=== PATIENT | female | born 1995 | race Caucasian/White ===

== ENCOUNTER → 2016-12-24 | Outpatient (CLI) | payer MEDICAID, OTHER ==
[~2016-12-24] MED LIST: PNV1TABL81 PO
--- NOTE | 2016-12-24 13:34 | Diagnostic Imaging Report ---
INDICATION: survey. TECHNIQUE: Multiple real-time grayscale images were obtained over the gravid uterus. COMPARISON: None. FINDINGS: There are no prior studies available for comparison. There is a single live fetus in variable presentation. heart motion was noted, and a rate of 127 bpm was recorded. There are no abnormalities identified; however, the stomach and four-chamber heart view were not well imaged. I would recommend that a short-term (four to six-week) followup exam be performed for further evaluation of the heart and stomach. The amniotic fluid volume is within normal limits. The placenta is anterior, and there is no previa. The growth parameters are fairly uniform. The cervix is identified and measures 4 cm in length. IMPRESSION: 1. There is a single live fetus approximately 20 weeks 5 days gestation +/- 1.5 weeks. The EDC is 05/08/2017. 2. There are no abnormalities identified, but the four-chamber heart view and the stomach were not optimally visualized. Recommendations as above. 3. The growth parameters are fairly uniform. Biometrical measurements are as follows: Biparietal 4.8 cm, age 20 weeks 4 days. Head circumference 18.07 cm, age 20 weeks 4 days. Abdominal circumference 15.9 cm, age 21 weeks 1 days. Femur length 3.37 cm, age 20 weeks 4 days. Sonographic estimate age: 20 weeks 5 days. Sonographic estimated date of delivery: . Estimated Weight: 376 gm (+/- 55 gm). LMP percentile: 56%. heart rate: 127 beats per minute. number: 1 of 1. Dictated by: Dictated on workstation # [id number]
== END ==
LOC: RAD 09:52
PROVIDERS: ATTEND Obstetrics & Gynecology
DX: Z36 Encounter for antenatal screening of mother (principal)
CPT/HCPCS: 76805

== ENCOUNTER → 2017-01-09 | Outpatient (CLI) | payer MEDICAID | LOC: LAB 09:04 | PROVIDERS: ATTEND Obstetrics & Gynecology | DX: O99.810 Abnormal glucose complicating pregnancy (principal); Z3A.00 Weeks of gestation of pregnancy not specified | CPT/HCPCS: 36415; 82951; 82952; 82962 ==

== ENCOUNTER → 2017-01-28 | Outpatient (CLI) | payer MEDICAID ==
--- NOTE | 2017-01-28 18:51 | Diagnostic Imaging Report ---
INDICATION: Follow-up stomach and heart evaluation. TECHNIQUE: Multiple real-time grayscale images were obtained over the gravid uterus. COMPARISON: 12/24/2016. FINDINGS: The heart rate is 140 beats per minutes. The placenta is anterior and extends to the lower uterine segment. It is at 1.9 cm from the internal os. The stomach appears unremarkable. The four-chamber view is not well seen due to position. IMPRESSION: 1. The placenta appears to extend to the lower uterine segment at about 1.9 cm from the internal os. 2. The four-chamber view of the heart is still not well seen. Dictated by: Dictated on workstation # [id number]
== END ==
LOC: RAD 09:34
PROVIDERS: ATTEND Obstetrics & Gynecology
DX: Z36.2 Encounter for other antenatal screening follow-up (principal); Z3A.00 Weeks of gestation of pregnancy not specified
CPT/HCPCS: 76816

== ENCOUNTER 2017-02-26 12:40 | Outpatient (CLI) | payer MEDICAID ==
[~2017-02-26] VITALS: Ht 161.3 cm; Wt 98.2 kg
[2017-02-26 12:58] VITALS: BP 120/60
[2017-02-26 13:25] LABS: BILIRUBIN,URINE NEGATIVE (NEGATIVE); KETONES,URINE NEGATIVE (NEGATIVE); LEUKOCYTE ESTERASE ,URINE 1+ (NEGATIVE); NITRITE,URINE NEGATIVE (NEGATIVE); PH,URINE 6.5 (5-9); PROTEIN,URINE 1+ (NEGATIVE); UROBILINOGEN,URINE 1 MG/DL (NORMAL)
[2017-02-26] MEDS ORDERED: INFLUENZA TRIvalent 2017-2018 0.5 ML/45 MCG SYR IM ONE (13:45)
[2017-02-26] MEDS ORDERED: CEPHALEXIN 250 MG (KEFLEX) CAP PO NR (14:00)
[2017-02-26] MEDS ORDERED: PNV1TABL81 PO (14:19)
--- NOTE | 2017-03-01 12:11 | Physician Query-Final Dx ---
JAVON SNYDER 03/01/17 1211: Clinic Account Progress/Dx Physician Query: Please give diagnosis Date of Service Feb 26, 2017 at 12:40 MARGARITA BYRD DO 03/02/17 0740: Clinic Account Progress/Dx DIAGNOSIS: Diagnosis pelvic pain UTI third trimester JAVON SNYDER Mar 01, 2017 12:11 MARGARITA BYRD DO Mar 02, 2017 07:40
== END 2017-02-26 14:25 | disposition home or self-care (01) ==
LOC: WSo 12:40 → LDRP 12:40 → WSo 14:25
PROVIDERS: ATTEND Obstetrics & Gynecology
DX: O23.43 Unspecified infection of urinary tract in pregnancy, third trimester (principal); O99.89 Other specified diseases and conditions complicating pregnancy, childbirth and the puerperium; R10.2 Pelvic and perineal pain; Z3A.29 29 weeks gestation of pregnancy
CPT/HCPCS: 81000; 87088; 99213

== ENCOUNTER 2017-03-28 10:18 | Observation (INO) | payer MEDICAID ==
[~2017-03-28] VITALS: Ht 162.6 cm; Wt 85.7 kg
[2017-03-28] VITALS (7 sets, daily range): BP systolic 110–139; BP diastolic 56–68
[2017-03-28] MEDS ORDERED: FERR-84 PO (10:34)
[2017-03-28] MEDS ORDERED: RT-ALBUINH IH (10:36)
[2017-03-28] MEDS ORDERED: ACET-2267 PO (10:37)
[2017-03-28] MEDS: D5 LR IV SOLUTION 1,000 ML IV SCH ×2 (11:05→19:15)
[2017-03-28 11:22] LABS: BILIRUBIN,URINE NEGATIVE (NEGATIVE); KETONES,URINE NEGATIVE (NEGATIVE); LEUKOCYTE ESTERASE ,URINE NEGATIVE (NEGATIVE); NITRITE,URINE NEGATIVE (NEGATIVE); PH,URINE 7 (5-9); PROTEIN,URINE 1+ (NEGATIVE); UROBILINOGEN,URINE NORMAL (NORMAL)
[2017-03-28 11:26] LABS: BASOPHILS % (AUTO) 0 % (0-10); EOSINOPHILS % (AUTO) 0 % (0-10); LYMPHOCYTES # (AUTO) 0.5 X 10^3 (1.0-4.0); LYMPHOCYTES % (AUTO) 6 % (12-44); MEAN CORPUSCULAR HEMOGLOBIN 34 PG (25-34); MEAN CORPUSCULAR HGB CONC 34 G/DL (32-36); MEAN CORPUSCULAR VOLUME 100 FL (80-99); MEAN PLATELET VOLUME 11.8 FL (7.4-10.4); MONOCYTES # (AUTO) 0.7 X 10^3 (0.0-1.0); MONOCYTES % (AUTO) 9 % (0-12); NEUTROPHILS # (AUTO) 6.4 X 10^3 (1.8-7.8); NEUTROPHILS % (AUTO) 84 % (42-75); PLATELET COUNT 107 10^3/uL (130-400); RED BLOOD COUNT 3.08 10^6/uL (4.35-5.85); RED CELL DISTRIBUTION WIDTH 13.3 % (10.0-14.5); WHITE BLOOD COUNT 7.7 10^3/uL (4.3-11.0)
[2017-03-28 11:45] LABS: ALANINE AMINOTRANSFERASE 38 U/L (0-55); ALBUMIN 3.1 GM/DL (3.2-4.5); ANION GAP 9 MMOL/L (5-14); ASPARTATE AMINO TRANSFERASE 76 U/L (5-34); BILIRUBIN,TOTAL 0.4 MG/DL (0.1-1.0); BLOOD UREA NITROGEN 2 MG/DL (7-18); BUN/CREATININE RATIO 3; CALCIUM 8.8 MG/DL (8.5-10.1); CARBON DIOXIDE 23 MMOL/L (21-32); CHLORIDE 106 MMOL/L (98-107); CREATININE SERUM 0.66 MG/DL (0.60-1.30); GFR ESTIMATED > 60; GLUCOSE 91 MG/DL (70-105); POTASSIUM 3.1 MMOL/L (3.6-5.0); SODIUM 138 MMOL/L (135-145); TOTAL PROTEIN 5.8 GM/DL (6.4-8.2)
[2017-03-28 11:57] LABS: BAND NEUTROPHILS 16 %; EOSINOPHILS % (MANUAL) 1 %; LYMPHOCYTES % (MANUAL) 6 %; NEUTROPHILS % (MANUAL) 69 %; REACTIVE LYMPHOCYTES 2 %
[2017-03-28] MEDS ORDERED: RT-ALBUTEROL HFA (VENTOLIN) PER PUFF IH PRN (12:15)
[2017-03-28] MEDS ORDERED: INFLUENZA TRIvalent 2017-2018 0.5 ML/45 MCG SYR IM ONE (13:15)
[2017-03-28] MEDS: OSELTAMIVIR 75 MG (TAMIFLU) BOX OF 10 PO SCH ×2 (13:22→21:58)
[2017-03-28] MEDS: ACETAMINOPHEN 500 MG TAB (TYLENOL) PO PRN ×2 (13:26→19:49)
[2017-03-28] MEDS: CHLORASEPTIC LOZENGE MM PRN ×3 (13:33→21:58)
[2017-03-28] MEDS: RT-ALBUTEROL SULF 2.5 MG/3 ML PRE-MIX VIAL INH PRN ×3 (13:38→21:56)
[2017-03-28] MEDS: guaiFENesin/DM (ROBITUSSIN DM) 10 ML UDC PO PRN ×2 (15:36→19:48)
--- OUTSIDE RECORDS SUMMARY | 2017-03-28 22:48 | XMS REPORT | Continuity of Care Document ---
Author Author [facility] Address Unknown Phone Unavailable Allergies Active Description Code Type Severity Reaction Onset Reported/Identified Relationship to Patient Clinical Status Yes clindamycin Drug Allergy N/A N/A 01/08/2014 Medications There is no data. Problems Date Dx Coded Attending Type Code Diagnosis Diagnosed By 01/08/2014 MELISSA HASSAN APRN 278.01 MORBID OBESITY 01/08/2014 MELISSA HASSAN APRN 626.0 ABSENCE OF MENSTRUATION 01/08/2014 MELISSA HASSAN APRN 278.01 MORBID OBESITY 01/08/2014 MELISSA HASSAN APRN 626.0 ABSENCE OF MENSTRUATION 01/15/2014 MELISSA HASSAN APRN 780.4 DIZZINESS AND GIDDINESS Procedures Code [place] [address] TEST, URINE (IN- HOUSE) 01/08/2014 07621 ROUTINE VENIPUNCTURE 01/15/2014 10994 TESTOSTERONE TOTAL-WOMEN & CHILDREN 01/15/2014 70459 CBC 01/15/2014 88290 CMP 01/15/2014 73182 LIPID PANEL 01/15/2014 [id number] GFR CALC (RESULT ONLY) 01/15/2014 59642 PROLACTIN 01/15/2014 21204 TSH 01/15/2014 81269 INSULIN LEVEL 01/16/2014 Results There is no data. Encounters ACCT No. Visit Date/Time Discharge Status Pt. Type Provider Facility Loc./Unit Complaint [id number] 01/15/2014 11:23:00 01/15/2014 23:59:59 CLS Outpatient MELISSA HASSAN APRN [id number] 01/08/2014 14:05:00 01/08/2014 23:59:59 CLS Outpatient MELISSA HASSAN APRN
[2017-03-29] MEDS: ACETAMINOPHEN 500 MG TAB (TYLENOL) PO PRN ×2 (01:44→07:45)
[2017-03-29] MEDS: guaiFENesin/DM (ROBITUSSIN DM) 10 ML UDC PO PRN ×2 (01:44→07:46)
[2017-03-29] MEDS: RT-ALBUTEROL SULF 2.5 MG/3 ML PRE-MIX VIAL INH PRN ×2 (01:58→08:51)
[2017-03-29] MEDS: D5 LR IV SOLUTION 1,000 ML IV SCH (03:40)
[2017-03-29 04:00] VITALS: BP 113/57
[2017-03-29] MEDS: CHLORASEPTIC LOZENGE MM PRN (07:39)
[2017-03-29] MEDS ORDERED: OSLT75C PO (08:50)
--- NOTE | 2017-03-29 08:51 | Discharge Inst-Women's Service ---
Discharge Inst-Women's Serv Depart Medication/Instructions New, Converted or Re-Newed RX: RX on Chart Consults/Follow Up Additional Follow Up: Yes Activity Activity: Activity as Tolerated Driving Instructions: You May Drive NO SMOKING: NO SMOKING Nothing Inside Vagina: No Douching Diet Discharge Diet: No Restrictions Symptoms to Report to : Bleeding Excessive, Pain Increased, Fever Over 101 Degrees F, Vaginal Bleeding Increase, Questions/Concerns For Any Problems or Questions: Contact Your Physician GERARD HENSLEY DO Mar 29, 2017 08:51
--- NOTE | 2017-03-29 09:33 | History & Physical-OB ---
OB - Chief Complaint & HPI Date/Time Date of Admission: Date of Admission: Mar 28, 2017 at 10:33 pm Time Seen by Provider: 08:10 Chief Complaint/History OB-Reason for Admission/Chief: Medical Complication Hx : 1 Hx Para: 0 Expected Date of Delivery: May 09, 2017 Gestational Age in Weeks: 34 Gestational Age in Days: 1 Other reason for admission: This 21-year-old was admitted yesterday morning for a presentation of cough, fever, and nausea with vomiting. The patient reports that she had held anything down for 3 days. Influenza testing was positive for influenza A. Patient was started on Tamiflu yesterday, limited dosing of dextromethorphan was given to the patient for control of her cough, and she reports been afebrile since last night. This morning upon evaluation the patient reports feeling much better still has an occasional cough. She would like a breathing treatment this morning which is pending. She had 2 breathing treatments yesterday and reports significant improvement in her cough and breathing after the treatments. The patient denies any concerns for labor, she reports rare contractions however no regular contractions or picked up on NST yesterday or throughout the evening. Admission Nurse Assessment Rev: Yes History of Labs o neg Antibody neg RI RPR NR HIV NR HBsAg NR GC neg GBS unknown Allergies and Home Medications Allergies Coded Allergies: clindamycin (Unverified Allergy, 03/25/12) Home Medications Acetaminophen 500 Mg Tablet, 500 MG PO, (Reported) Albuterol Sulfate 1 Puff Puff, 2 PUFF IH Q4H, (Reported) 1 PUFF = 90 MCG Ferrous Sulfate 325 Mg Tablet, 325 MG PO DAILY, (Reported) Oseltamivir Phosphate 75 Mg Cap, 0 EACH PO BID for 4 Days, #9 Prescribed by: GERARD HENSLEY on 03/29/17 0850 Pnv No.122/Iron/Folic Acid 1 Each Tablet, 1 EACH PO DAILY, (Reported) OB - History Hx of Present Care: Yes Ultrasounds: Normal mid trimester US Obstetrical Complications: Other (Per Dr. Shin records abnormal 1 hr GTT of 160s with no follow up 3 hr GTT done. Patient has been testing BS levels but I have no documentation of control) Medical Complications: Other (Asthma) Obstetrical History Hx : 1 Hx Para: 0 Delivery History Hx Blood Disorders: No Patient Past Medical History Borderline personality disorder, Asthma, Bipolar, ADHD Social History/Family History Recent Infectious Disease Expo: No OB - Admission Exam Physical Exam Vitals: Vital Signs 03/29/17 03/29/17 04:00 09:00 Temp 98.9 Pulse 105 Resp 20 B/P (MAP) 113/57 (75) Pulse Ox 96 O2 Delivery Room Air HEENT: NCAT Heart: Rhythm Normal Lungs: Wheezes (expiratory wheezes which improve after breathing treatment) Abdomen: Gravid Extremities: Normal Reflexes: Normal Heart Rate: 140's Accelerations: Accelerations Present Decelerations: No Decelerations Short Term Variability: Present Senior Living Variability: Average (6-25) Contractions on Admission: >10 Minutes Apart Intensity: Mild Labs Laboratory Tests Test 03/28/17 10:20 03/28/17 11:19 Range/Units Urine Color YELLOW Urine Clarity CLEAR Urine pH 7 5-9 Urine Specific [place] 1.005 L 1.016-1.022 Urine Protein 1+ H NEGATIVE Urine Glucose (UA) NEGATIVE NEGATIVE Urine Ketones NEGATIVE NEGATIVE Urine Nitrite NEGATIVE NEGATIVE Urine Bilirubin NEGATIVE NEGATIVE Urine Urobilinogen NORMAL NORMAL MG/DL Urine Leukocyte Esterase NEGATIVE NEGATIVE Urine RBC (Auto) 1+ H NEGATIVE Urine RBC NONE /HPF Urine WBC NONE /HPF Urine Crystals NONE /LPF Urine Bacteria TRACE /HPF Urine Casts NONE /LPF Urine Mucus NEGATIVE /LPF Urine Culture Indicated NO White Blood Count 7.7 4.3-11.0 10^3/uL Red Blood Count 3.08 L 4.35-5.85 10^6/uL Hemoglobin 10.4 L 11.5-16.0 G/DL Hematocrit 31 L 35-52 % Mean Corpuscular Volume 100 H 80-99 FL Mean Corpuscular Hemoglobin 34 25-34 PG Mean Corpuscular Hemoglobin Concent 34 32-36 G/DL Red Cell Distribution Width 13.3 10.0-14.5 % Platelet Count 107 L 130-400 10^3/uL Mean Platelet Volume 11.8 H 7.4-10.4 FL Neutrophils (%) (Auto) 84 H 42-75 % Lymphocytes (%) (Auto) 6 L 12-44 % Monocytes (%) (Auto) 9 0-12 % Eosinophils (%) (Auto) 0 0-10 % Basophils (%) (Auto) 0 0-10 % Neutrophils # (Auto) 6.4 1.8-7.8 X 10^3 Lymphocytes # (Auto) 0.5 L 1.0-4.0 X 10^3 Monocytes # (Auto) 0.7 0.0-1.0 X 10^3 Eosinophils # (Auto) 0.0 0.0-0.3 10^3/uL Basophils # (Auto) 0.0 0.0-0.1 10^3/uL Neutrophils % (Manual) 69 % Lymphocytes % (Manual) 6 % Monocytes % (Manual) 6 % Eosinophils % (Manual) 1 % Band Neutrophils 16 % Reactive Lymphocytes 2 % Blood Morphology Comment NORMAL Sodium Level 138 135-145 MMOL/L Potassium Level 3.1 L 3.6-5.0 MMOL/L Chloride Level 106 98-107 MMOL/L Carbon Dioxide Level 23 21-32 MMOL/L Anion Gap 9 5-14 MMOL/L Blood Urea Nitrogen 2 L 7-18 MG/DL Creatinine 0.66 0.60-1.30 MG/DL Estimat Glomerular Filtration Rate > 60 BUN/Creatinine Ratio 3 Glucose Level 91 70-105 MG/DL Calcium Level 8.8 8.5-10.1 MG/DL Total Bilirubin 0.4 0.1-1.0 MG/DL Aspartate Amino Transf (AST/SGOT) 76 H 5-34 U/L Alanine Aminotransferase (ALT/SGPT) 38 0-55 U/L Alkaline Phosphatase 106 40-136 U/L Total Protein 5.8 L 6.4-8.2 GM/DL Albumin 3.1 L 3.2-4.5 GM/DL OB - Assessment/Plan/Diagnosis Plan Other Plan If patient tolerates regular diet for breakfast this morning, and NST is reactive I will consider discharge today around noon pending no further fevers or breathing difficulties. The patient is to continue a 5 day course of Tamiflu 75 mg twice a day. Follow-up is with Dr. Guerrero on . Patient told to continue respiratory precautions when in public including visit to Dr. Guerrero's office. Patient's significant other was told to seek medical attention as he has similar symptoms. Discharge Diagnosis Diagnosis: 21-year-old at 34 weeks and 1 day gestation Influenza A Intractable nausea and vomiting- improved GERARD HENSLEY DO Mar 29, 2017 9:33 am
[2017-03-29 10:00] VITALS: BP 110/51
[2017-03-29 11:20] VITALS: BP 110/51
== END 2017-03-29 08:52 | disposition home or self-care (01) ==
LOC: WSo 10:18 → LDRP 10:18 → WSo 22:33 → 4TH 23:30
PROVIDERS: ADMIT Obstetrics & Gynecology; ATTEND Obstetrics & Gynecology
DX: J10.2 Influenza due to other identified influenza virus with gastrointestinal manifestations (principal); Z3A.34 34 weeks gestation of pregnancy; O99.53 Diseases of the respiratory system complicating the puerperium; J45.909 Unspecified asthma, uncomplicated
CPT/HCPCS: 36415; 80053; 81000; 85007; 85027; 87088; 87804; 94640; 94760; 96360; 96361; 99211; G0378

== ENCOUNTER 2017-05-10 05:55 | Inpatient (IN) | payer MEDICAID ==
[2017-05-10] VITALS (16 sets, daily range): BP systolic 116–146; BP diastolic 58–89
[~2017-05-10] VITALS: Ht 162.6 cm; Wt 101.3 kg
[2017-05-10] MEDS: MISOPROSTOL 100 MCG (CYTOTEC) TAB PO SCH ×4 (01:15→21:15)
[~2017-05-10 05:55] MED LIST changes: +ACET-2267 PO; +FERR-84 PO; +OSLT75C PO; +RT-ALBUINH IH; +[UNRECOGNIZED DRUG - CODE] PO
--- OUTSIDE RECORDS SUMMARY | 2017-05-10 05:58 | XMS REPORT | Continuity of Care Document ---
Author Author [facility] Address Unknown Phone Unavailable Allergies Active Description [...] Procedures Code Description [place] [address] TEST, URINE (IN- HOUSE) 01/08/2014 07097 ROUTINE VENIPUNCTURE 01/15/2014 50740 TESTOSTERONE TOTAL-WOMEN & CHILDREN 01/15/2014 26281 CBC 01/15/2014 57131 CMP 01/15/2014 25322 LIPID PANEL 01/15/2014 [id number] GFR CALC (RESULT ONLY) 01/15/2014 21710 PROLACTIN 01/15/2014 55061 TSH 01/15/2014 09202 INSULIN LEVEL 01/16/2014 Results There is no data. Encounters ACCT No. Visit Date/Time Discharge Status Pt. Type Provider Facility Loc./Unit Complaint [id number] 01/15/2014 11:23:00 01/15/2014 23:59:59 CLS Outpatient MELISSA HASSAN APRN [id number] 01/08/2014 14:05:00 01/08/2014 23:59:59 CLS Outpatient MELISSA HASSAN APRN
[2017-05-10] MEDS ORDERED: LIDOCAINE/EPI 0.5%-1:200,000 (XYLOCAINE) 50ML VIAL INJ PRN (06:30)
[2017-05-10] MEDS ORDERED: MINERAL OIL CONCENTRATE 99.9% 15 ML UDC TOP PRN (06:30)
[2017-05-10] MEDS: D5 LR IV SOLUTION 1,000 ML IV SCH ×2 (09:15→16:59)
[2017-05-10] MEDS ORDERED: MISOPROSTOL 100 MCG (CYTOTEC) TAB PO ONE (09:15)
[2017-05-10] MEDS ORDERED: TERBUTALINE INJ 1 MG/ML (BRETHINE) AMP SC PRN (09:15)
[2017-05-10 09:30] LABS: BASOPHILS % (AUTO) 0 % (0-10); EOSINOPHILS # (AUTO) 0.1 10^3/uL (0.0-0.3); EOSINOPHILS % (AUTO) 1 % (0-10); HEMATOCRIT 34 % (35-52); HEMOGLOBIN 11.8 G/DL (11.5-16.0); LYMPHOCYTES # (AUTO) 1.9 X 10^3 (1.0-4.0); LYMPHOCYTES % (AUTO) 18 % (12-44); MEAN CORPUSCULAR HEMOGLOBIN 34 PG (25-34); MEAN CORPUSCULAR HGB CONC 35 G/DL (32-36); MEAN CORPUSCULAR VOLUME 98 FL (80-99); MEAN PLATELET VOLUME 12.2 FL (7.4-10.4); MONOCYTES # (AUTO) 0.7 X 10^3 (0.0-1.0); MONOCYTES % (AUTO) 7 % (0-12); NEUTROPHILS # (AUTO) 7.9 X 10^3 (1.8-7.8); NEUTROPHILS % (AUTO) 74 % (42-75); PLATELET COUNT 153 10^3/uL (130-400); WHITE BLOOD COUNT 10.6 10^3/uL (4.3-11.0)
[2017-05-10 10:32] LABS: BILIRUBIN,URINE NEGATIVE (NEGATIVE); CLARITY,URINE CLEAR; COLOR,URINE YELLOW; GLUCOSE, URINE (UA) NEGATIVE (NEGATIVE); KETONES,URINE NEGATIVE (NEGATIVE); LEUKOCYTE ESTERASE ,URINE NEGATIVE (NEGATIVE); NITRITE,URINE NEGATIVE (NEGATIVE); PH,URINE 7 (5-9); PROTEIN,URINE NEGATIVE (NEGATIVE); UROBILINOGEN,URINE NORMAL (NORMAL)
[2017-05-10 10:42] LABS: AMORPHOUS SEDIMENT,UR RARE AMOR URATES /LPF; BACTERIA,URINE TRACE /HPF; WBC,URINE RARE /HPF
[2017-05-10] MEDS ORDERED: INFLUENZA TRIvalent 2017-2018 0.5 ML/45 MCG SYR IM ONE (13:00)
[2017-05-10] MEDS ORDERED: DINOPROSTONE 10 MG (CERVIDIL) INSERT PV ONE (21:30)
[2017-05-10] MEDS ORDERED: ZOLPIDEM 5 MG (AMBIEN) TAB PO PRN (21:30)
[2017-05-11] VITALS (34 sets, daily range): BP systolic 100–149; BP diastolic 57–92
[2017-05-11] MEDS: D5 LR IV SOLUTION 1,000 ML IV SCH ×2 (01:18→09:21)
[2017-05-11] MEDS ORDERED: LACTATED RINGERS 0 ML IV ONE (03:44)
[2017-05-11] MEDS ORDERED: CITRIC ACID/SOB CIT (BICITRA) 30 ML UDC ONE ×2 (03:44→12:51)
[2017-05-11] MEDS ORDERED: METOCLOPRAMIDE INJ 10 MG/2 ML (REGLAN) ONE (03:44)
[2017-05-11] MEDS ORDERED: FAMOTIDINE 20MG/2ML IV (PEPCID) ONE ×2 (03:44→12:51)
[2017-05-11] MEDS: NICOTINE 21 MG (NICODERM) PATCH TD SCH (08:23)
[2017-05-11] MEDS ORDERED: LACTATED RINGERS 1,000 ML IV ONE (08:43)
[2017-05-11] MEDS ORDERED: OXYTOCIN/NORMAL SALINE 500 ML IV ONE (08:43)
[2017-05-11] MEDS: LACTATED RINGERS 1,000 ML IV SCH ×2 (08:46→15:54)
[2017-05-11] MEDS: OXYTOCIN/NORMAL SALINE 500 ML IV SCH ×2 (08:54→16:00)
[2017-05-11] MEDS ORDERED: SUFENTA 0.6MCG/ML BUPIVA 0.125 100 ML ONE ×2 (09:51→09:53)
[2017-05-11] MEDS ORDERED: EPIDURAL (SUFENTA 0.6MCG/ML BUPIVA 0.125%) 100 ML BAG EPI SCH (10:00)
[2017-05-11] MEDS ORDERED: NALOXONE 0.4 MG/ML 1 ML (NARCAN) VIAL IV PRN ×2 (10:00)
[2017-05-11] MEDS ORDERED: METOCLOPRAMIDE INJ 10 MG/2 ML (REGLAN) IV PRN (10:00)
[2017-05-11] MEDS ORDERED: diphenhydrAMINE 50 MG/ML INJ (BENADRYL) IV PRN (10:00)
[2017-05-11] MEDS ORDERED: ONDANSETRON 4 MG/2 ML (SDV) Z0FRAN IV PRN (10:00)
[2017-05-11] MEDS ORDERED: AZITHROMYCIN 500 MG (ZITHROMAX) VIAL ONE (12:49)
[2017-05-11] MEDS ORDERED: NS (IVPB) 250 ML ONE (12:49)
[2017-05-11] MEDS ORDERED: ceFAZolin 2 GM/50 ML NS 50 ML ONE (12:51)
[2017-05-11] MEDS ORDERED: LACTATED RINGERS 1,000 ML IV PRN (13:16)
[2017-05-11] MEDS ORDERED: CITRIC ACID/SOB CIT (BICITRA) 30 ML UDC PO ONE (14:30)
[2017-05-11] MEDS ORDERED: FAMOTIDINE 20MG/2ML IV (PEPCID) IV ONE (14:30)
[2017-05-11] MEDS ORDERED: METOCLOPRAMIDE INJ 10 MG/2 ML (REGLAN) IV ONE (14:30)
[2017-05-11] MEDS ORDERED: AZITHROMYCIN INJECTION 500 MG in NS (IVPB) 250 ML IV ONE (15:00)
[2017-05-11] MEDS ORDERED: ceFAZolin 2 GM/50 ML NS 50 ML IV ONE (15:00)
[2017-05-11] MEDS ORDERED: LIDOCAINE PF 2% 5 ML (XYLOCAINE) VIAL ONE (15:18)
[2017-05-11] MEDS ORDERED: fentaNYL INJECTION 100 MCG/2 ML AMP ONE (15:18)
--- NOTE | 2017-05-11 15:19 | Progress Note-Standard ---
Standard Progress Note Progress Notes/Assess & Plan Date Seen by Provider: May 11, 2017 Time Seen by Provider: 08:30 Progress/Assessment & Plan Patient was admitted 05/10/17 for induction of labor after failed induction last week. This did not get started right away as there was an emergency cs when she arrived. Misoprostel was started at 1000. When she was due to evening misoprostol, cervix was 1/50/-2 and she declined dominguez/cook catheter induction. Instead cervidil was done overnight. Due to come out at 1000 but patient requested exam at 0830. Attempted ROM but unable. Cervix 1 - 1 1/2 cm. Started oxytocin. Epidrual placed. SROM at 11:23. Pitocin with hyperstim and late decelerations, but patient has now requested primary section. This is planned at 1530 due to eating breakfast. Risks of surgery include infection, bleeding, injury to bowel, bladder and ureter. Will use spinal. Ancef 2 IV prophylactically and zithromax 500 mg x 1 due to ROM. SCDs. Appropriate consents signed. MARGARITA BYRD DO May 11, 2017 15:19
[2017-05-11] MEDS ORDERED: BUPIVACAINE 0.5% 30 ML (SENSORCAINE) VIAL ONE (15:24)
[2017-05-11] MEDS ORDERED: KETOROLAC 30 MG/ML VIAL ONE (15:24)
[2017-05-11] MEDS ORDERED: ONDANSETRON 4 MG/2 ML (SDV) Z0FRAN ONE (15:24)
[2017-05-11] MEDS ORDERED: KETAMINE HCL 100 MG/ML 5 ML VIAL ONE ×2 (15:25→15:27)
[2017-05-11] MEDS ORDERED: OXYTOCIN (PITOCIN) 10 UNIT/ML VIAL ONE (15:28)
[2017-05-11] MEDS: KETOROLAC 30 MG/ML VIAL IVP SCH ×2 (16:00→21:01)
--- NOTE | 2017-05-11 16:37 | Cesarean Section Operative ---
Procedure Procedure Note Pre-operative Diagnosis: Symone Dewitt is a 22 /Para 1 /0 , Gestational Age 40 2/7 weeks, failure to progress, meconium stained fluid, failed induction x 2. Post-operative Diagnosis: same , op presentation Procedure: primary low transverse section Physician: MARGARITA BYRD Estimated blood loss: 750 mL Disposition: stable Findings: Viable male , Apgars8/9, weight 7#2oz, intact placenta, 3vc, normal appearing uterus, tubes, and ovaries. Indications:Symone Dewitt is a 22 /Para 1 /0 ,Gestational Age 40 2/ 7 weeks, failure to progress, meconium stained fluid, failed induction x 2. Patient was admitted for social induction of labor last week at 39 weeks. After 24 hours without progress, she opted to be discharged to home to return this week for post date induction. She has received misoprostol x 12 hours and Cervidil for approximately 12 hours. Had SROM with exam. Pitocin augmentation and epidural. Still only 1 cm dilated. meconium stained fluid. Patient has asked for primary section at this time. Procedure Details: The patient was seen in pre-op and the procedure was discussed with the patient in full, including the risks, benefits, and alternatives. All questions were answered. The patient was taken to the operating room and a time out was performed, verifying patient and procedure. After spinal anesthesia was placed by our anesthesia colleagues, the patient was placed in the dorsal supine with leftward tilt for uterine displacement.~ Her abdomen was then prepped and draped in the typical sterile fashion. A Pfannenstiel skin incision was made using a scalpel and carried down through the underlying fascia. The fascia was incised in the midline and tented up using Edy clamps. On both the inferior and superior fascia side the rectus muscle was dissected off bluntly and sharply using Lewis scissors. The peritoneum was identified and entered bluntly in the midline. This was then stretched laterally using manual strength. After entering the abdominal cavity and confirming lack of intraperitoneal adhesions, an extra large Bruce retractor was placed and the lower uterine segment was visualized. A scalpel was utilized to make a low transverse uterine incision. Amniotomy was performed with an Allis clamp with return of light green fluid. The 's head was grasped and brought to the level of the incision. Fundal pressure was applied and was delivered without difficulty with assistance of the silastic suction. Mouth and nares were suctioned with bulb suction. After the umbilical cord was clamped and cut, the infant was handed off to the pediatric staff. A sample of cord blood was then obtained. The placenta was delivered intact via uterine massage. The uterus was cleared of all clots and debris. The uterine incision was closed using 0 Vicryl in a running locked fashion. A second imbricated layer was placed using 0 Vicryl in a running fashion as well. The uterus was flexed forward and the posterior rectouterine space was inspected and cleared of all clots and debris. Again the hysterotomy site was examined and hemostasis was observed. The bilateral tubes and ovaries appeared normal. The abdominal gutters were cleared of all clots and debris. A final check of the uterine incision showed it to be hemostatic. The abdomen was irrigated. The peritoneum was closed using 3-0 Vicryl in a running fashion. The fascia was closed with 0 Vicryl in a running fashion. The subcutaneous space was hemostatic, and irrigated. The subcutaneous space was closed with 3-0 Vicryl in several single interrupted stitches. The skin was then closed using 4-0 Monocryl in a running subcuticular fashion. The skin edges were reapproximated together and were hemostatic. A pressure dressing was applied. All sponge, lap and needle counts were correct at the end of the procedure per nursing. Vitals - Labs Vital Signs - I&O Vital Signs Date Time Temp Pulse Resp B/P (MAP) Pulse Ox O2 Delivery O2 Flow Rate FiO2 05/11/17 15:30 91 18 112/57 (75) Room Air 05/11/17 15:15 92 18 116/73 (87) Room Air 05/11/17 15:00 90 18 117/66 (83) Room Air 05/11/17 14:45 97.0 87 18 113/65 (81) Room Air 05/11/17 14:30 93 18 118/65 (82) Room Air 05/11/17 14:15 92 18 117/59 (78) Room Air 05/11/17 14:00 93 18 118/64 (82) Room Air 05/11/17 13:45 98 18 117/61 (79) Room Air 05/11/17 13:30 90 18 122/65 (84) Room Air 05/11/17 13:15 97.5 84 18 128/70 (89) 93 Room Air 05/11/17 13:00 88 18 121/65 (83) 100 Room Air 05/11/17 12:45 91 18 125/61 (82) 100 Room Air 05/11/17 12:30 86 18 100/59 (73) 100 Room Air 05/11/17 12:15 98 18 109/68 (82) 100 Room Air 05/11/17 12:00 92 18 111/65 (80) 100 Room Air 05/11/17 11:45 83 18 114/60 (78) 100 Room Air 05/11/17 11:30 89 18 115/60 (78) 100 Room Air 05/11/17 11:15 91 18 112/67 (82) 97 Room Air 05/11/17 11:00 87 18 139/66 (90) 100 Room Air 05/11/17 10:45 97.8 92 18 127/67 (87) 99 Room Air 05/11/17 10:30 93 18 126/65 (85) 100 Room Air 05/11/17 10:15 92 18 131/67 (88) 100 Room Air 05/11/17 10:00 99.1 86 18 132/60 (84) 99 Room Air 05/11/17 09:55 93 18 128/60 (82) 100 Room Air 05/11/17 09:50 92 18 131/69 (89) 100 Room Air 05/11/17 09:48 86 18 133/74 (93) 100 Room Air 05/11/17 09:47 87 18 148/79 (102) 99 Room Air 05/11/17 09:45 89 18 149/92 (111) 99 Room Air 05/11/17 09:34 80 18 139/72 (94) 100 Room Air 05/11/17 09:24 75 18 132/74 (93) 100 Room Air 05/11/17 07:35 99.8 67 18 124/68 (86) Room Air 05/11/17 07:00 Room Air 05/11/17 06:30 Room Air 05/11/17 06:00 97.7 61 18 124/61 (82) Room Air 05/11/17 01:56 Room Air 05/11/17 01:20 97.6 71 18 137/64 (88) Room Air 05/10/17 22:21 Room Air 05/10/17 21:31 Room Air 05/10/17 21:00 99.0 Room Air 05/10/17 20:30 Room Air 05/10/17 20:17 99.2 76 18 121/58 (79) Room Air 05/10/17 20:03 81 125/60 (81) 05/10/17 20:00 99.5 80 18 146/66 (92) Room Air 05/10/17 18:00 69 18 124/66 (85) Room Air 05/10/17 17:30 65 18 125/59 (81) Room Air 05/10/17 16:56 98.9 76 18 123/80 (94) Room Air I & O 05/11/17 07:00 Intake Total 2000 ml Balance 2000 ml Labs Microbiology 05/10/17 Urine Culture - Preliminary, Resulted MARGARITA BYRD DO May 11, 2017 16:37
[2017-05-11] MEDS ORDERED: OXYTOCIN/NORMAL SALINE 500 ML IV SCH (16:38)
[2017-05-11] MEDS ORDERED: D5 LR IV SOLUTION 1,000 ML IV SCH (16:38)
[2017-05-11] MEDS ORDERED: TETANUS,DIPTH,PERTUSS P/F (BOOSTRIX) 0.5 ML VIAL IM SCH (16:45)
[2017-05-11] MEDS ORDERED: MEASLES,MUMPS,RUBELLA 1 EA INJ SC SCH (16:45)
[2017-05-11] MEDS ORDERED: HYDROmorphone (DILAUDID) 2 MG/ML VIAL IVP PRN (16:45)
[2017-05-11] MEDS ORDERED: ONDANSETRON 4 MG/2 ML (SDV) Z0FRAN IVP PRN (16:45)
[2017-05-11] MEDS: HYDROcodone/APAP 5 MG/325 MG (LORTAB) TAB PO PRN (19:55)
[2017-05-11] MEDS: RT-ALBUTEROL/IPRATROPIUM 3 ML (DUONEB) VIAL INH PRN (20:27)
[2017-05-11] MEDS: DOCUSATE SODIUM 100 MG (COLACE) CAP PO SCH (21:01)
[2017-05-11] MEDS ORDERED: CATHETER FLUSH 10 ML SYR IV SCH (22:00)
[2017-05-12 00:05] VITALS: BP 136/65
[2017-05-12] MEDS: HYDROcodone/APAP 5 MG/325 MG (LORTAB) TAB PO PRN ×6 (00:08→22:21)
[2017-05-12] MEDS ORDERED: IBUPROFEN 600 MG (MOTRIN) TAB PO ONE ×2 (03:03→10:52)
[2017-05-12] MEDS: IBUPROFEN 600 MG (MOTRIN) TAB PO SCH (03:09)
[2017-05-12 03:11] VITALS: BP 120/75
[2017-05-12] MEDS: KETOROLAC 30 MG/ML VIAL IVP SCH ×2 (04:35→04:36)
[2017-05-12 06:28] LABS: BASOPHILS % (AUTO) 0 % (0-10); EOSINOPHILS # (AUTO) 0.1 10^3/uL (0.0-0.3); EOSINOPHILS % (AUTO) 1 % (0-10); HEMATOCRIT 27 % (35-52); HEMOGLOBIN 9.2 G/DL (11.5-16.0); LYMPHOCYTES # (AUTO) 1.7 X 10^3 (1.0-4.0); LYMPHOCYTES % (AUTO) 17 % (12-44); MEAN CORPUSCULAR HEMOGLOBIN 34 PG (25-34); MEAN CORPUSCULAR HGB CONC 34 G/DL (32-36); MEAN CORPUSCULAR VOLUME 99 FL (80-99); MEAN PLATELET VOLUME 12.1 FL (7.4-10.4); MONOCYTES # (AUTO) 0.6 X 10^3 (0.0-1.0); MONOCYTES % (AUTO) 6 % (0-12); NEUTROPHILS % (AUTO) 76 % (42-75); PLATELET COUNT 135 10^3/uL (130-400); RED BLOOD COUNT 2.72 10^6/uL (4.35-5.85); RED CELL DISTRIBUTION WIDTH 13.9 % (10.0-14.5); WHITE BLOOD COUNT 10.4 10^3/uL (4.3-11.0)
[2017-05-12 08:15] VITALS: BP 127/76
--- NOTE | 2017-05-12 08:33 | Postpartum Progress Note ---
Post Op Post-operative Day #1 s/p PLTCS due to FTP, meconium Subjective: Patient is without complaints. Ambulating, voiding after dominguez removed. Tolerating a regular diet without nausea or vomiting. Normal lochia. Pain is well controlled with oral pain medications. Passing flatus. breast feeding. Objective: Laboratory Tests Test 05/12/17 06:10 Range/Units White Blood Count 10.4 4.3-11.0 10^3/uL Red Blood Count 2.72 L 4.35-5.85 10^6/uL Hemoglobin 9.2 #L 11.5-16.0 G/DL Hematocrit 27 L 35-52 % Mean Corpuscular Volume 99 80-99 FL Mean Corpuscular Hemoglobin 34 25-34 PG Mean Corpuscular Hemoglobin Concent 34 32-36 G/DL Red Cell Distribution Width 13.9 10.0-14.5 % Platelet Count 135 130-400 10^3/uL Mean Platelet Volume 12.1 H 7.4-10.4 FL Neutrophils (%) (Auto) 76 H 42-75 % Lymphocytes (%) (Auto) 17 12-44 % Monocytes (%) (Auto) 6 0-12 % Eosinophils (%) (Auto) 1 0-10 % Basophils (%) (Auto) 0 0-10 % Neutrophils # (Auto) 8.0 H 1.8-7.8 X 10^3 Lymphocytes # (Auto) 1.7 1.0-4.0 X 10^3 Monocytes # (Auto) 0.6 0.0-1.0 X 10^3 Eosinophils # (Auto) 0.1 0.0-0.3 10^3/uL Basophils # (Auto) 0.0 0.0-0.1 10^3/uL Vital Sign - Last 12Hours 05/12/17 05/12/17 00:05 03:11 Temp 97.6 97.8 Pulse 72 87 Resp 18 18 B/P (MAP) 136/65 (88) 120/75 (90) Pulse Ox 100 99 Intake and Output 05/12/17 00:00 Intake Total 3625 ml Output Total 425 ml Balance 3200 ml Physical Exam: General - Alert and oriented, no apparent distress Abdomen - Soft, appropriately tender to palpation, non-distended, fundus firm at umbilicus Incision - clean, dry and intact; no erythema or induration, no drainage Extremities - no edema, negative Walter's bilaterally Assessment: 1. post-operative day # 1, status postPLTCS. Recovering well, hemodynamically stable 2. Acute blood loss anemia, iron replaced Plan: Routine post-operative care. Encourage breast feeding. Encourage ambulation. VTE prophylaxis: SCDs. Ferrous sulfate supplementation. Plan for discharge tomorrow Vitals - Labs Vital Signs - I&O Vital Signs Date Time Temp Pulse Resp B/P (MAP) Pulse Ox O2 Delivery O2 Flow Rate FiO2 05/12/17 03:11 97.8 87 18 120/75 (90) 99 05/12/17 00:05 97.6 72 18 136/65 (88) 100 05/11/17 20:30 98.6 89 18 112/60 (77) 100 05/11/17 20:30 99 Room Air 05/11/17 15:30 91 18 112/57 (75) Room Air 05/11/17 15:15 92 18 116/73 (87) Room Air 05/11/17 15:00 90 18 117/66 (83) Room Air 05/11/17 14:45 97.0 87 18 113/65 (81) Room Air 05/11/17 14:30 93 18 118/65 (82) Room Air 05/11/17 14:15 92 18 117/59 (78) Room Air 05/11/17 14:00 93 18 118/64 (82) Room Air 05/11/17 13:45 98 18 117/61 (79) Room Air 05/11/17 13:30 90 18 122/65 (84) Room Air 05/11/17 13:15 97.5 84 18 128/70 (89) 93 Room Air 05/11/17 13:00 88 18 121/65 (83) 100 Room Air 05/11/17 12:45 91 18 125/61 (82) 100 Room Air 05/11/17 12:30 86 18 100/59 (73) 100 Room Air 05/11/17 12:15 98 18 109/68 (82) 100 Room Air 05/11/17 12:00 92 18 111/65 (80) 100 Room Air 05/11/17 11:45 83 18 114/60 (78) 100 Room Air 05/11/17 11:30 89 18 115/60 (78) 100 Room Air 05/11/17 11:15 91 18 112/67 (82) 97 Room Air 05/11/17 11:00 87 18 139/66 (90) 100 Room Air 05/11/17 10:45 97.8 92 18 127/67 (87) 99 Room Air 05/11/17 10:30 93 18 126/65 (85) 100 Room Air 05/11/17 10:15 92 18 131/67 (88) 100 Room Air 05/11/17 10:00 99.1 86 18 132/60 (84) 99 Room Air 05/11/17 09:55 93 18 128/60 (82) 100 Room Air 05/11/17 09:50 92 18 131/69 (89) 100 Room Air 05/11/17 09:48 86 18 133/74 (93) 100 Room Air 05/11/17 09:47 87 18 148/79 (102) 99 Room Air 05/11/17 09:45 89 18 149/92 (111) 99 Room Air 05/11/17 09:34 80 18 139/72 (94) 100 Room Air 05/11/17 09:24 75 18 132/74 (93) 100 Room Air I & O 05/12/17 07:00 Intake Total 5625 ml Output Total 1525 ml Balance 4100 ml Labs Laboratory Tests 05/12/17 06:10: White Blood Count 10.4, Red Blood Count 2.72L, Hemoglobin 9.2#L, Hematocrit 27L , Mean Corpuscular Volume 99, Mean Corpuscular Hemoglobin 34, Mean Corpuscular Hemoglobin Concent 34, Red Cell Distribution Width 13.9, Platelet Count 135, Mean Platelet Volume 12.1H, Neutrophils (%) (Auto) 76H, Lymphocytes (%) (Auto) 17, Monocytes (%) (Auto) 6, Eosinophils (%) (Auto) 1, Basophils (%) (Auto) 0, Neutrophils # (Auto) 8.0H, Lymphocytes # (Auto) 1.7, Monocytes # (Auto) 0.6, Eosinophils # (Auto) 0.1, Basophils # (Auto) 0.0 Microbiology 05/10/17 Urine Culture - Preliminary, Resulted MARGARITA BYRD DO May 12, 2017 08:33
[2017-05-12] MEDS: DOCUSATE SODIUM 100 MG (COLACE) CAP PO SCH (08:35)
[2017-05-12] MEDS: RT-ALBUTEROL/IPRATROPIUM 3 ML (DUONEB) VIAL INH PRN ×2 (08:58→22:26)
[2017-05-12] MEDS ORDERED: NICOTINE PATCH REMOVAL TP SCH (08:59)
[2017-05-12] MEDS: NICOTINE 21 MG (NICODERM) PATCH TD SCH (09:00)
[2017-05-12] MEDS: FERROUS SULF 325 MG (IRON) TAB PO SCH (10:40)
[2017-05-12 11:00] VITALS: BP 122/62
[2017-05-12] MEDS ORDERED: ENOXAPARIN 40 MG/0.4 ML (LOVENOX) SYR SC SCH (11:00)
--- NOTE | 2017-05-12 12:21 | Anesthesia-Regional Post-Op ---
Regional Patient Condition Mental Status: Alert, Oriented x3 Circulation: Same as Pre-Op Headache: Absent Sensation: Full Recovery Motor Block: Absent Post Op Complications Complications None Follow Up Care/Instructions Patient Instructions None needed. Anesthesia/Patient Condition Patient is doing well, no complaints, stable vital signs, no apparent adverse anesthesia problems. MELISSA SLOAN DO May 12, 2017 12:21
[2017-05-12 16:30] VITALS: BP 117/61
[2017-05-12] MEDS ORDERED: IBUP-1773 PO (17:10)
[2017-05-12] MEDS ORDERED: DOCU100C37 PO (17:10)
[2017-05-12] MEDS ORDERED: ACHD5005 PO (17:10)
[2017-05-12] MEDS ORDERED: FERR325T18 PO (17:10)
[2017-05-12] MEDS ORDERED: METOCLOPRAMIDE 10 MG (REGLAN) TAB PO PRN (17:30)
--- NOTE | 2017-05-12 19:22 | Discharge Inst-Women's Service ---
Discharge Inst-Women's Serv Depart Medication/Instructions New, Converted or Re-Newed RX: RX on Chart Instructions no lifting over 25 lbs, no driving for 1 week, nothing in the vagina Final Diagnosis post dates failure to progress, arrest of dilation meconium stained fluid failed induction x 2 acute blood loss anemia Consults/Follow Up Additional Follow Up: Yes (1 week for incision check with Jessica/Cesar, 6 week pp exam) Activity Activity: Activity as Tolerated Driving Instructions: No Driving for 1 Week NO SMOKING: NO SMOKING Nothing Inside Vagina: No Douching, No [place], No Tampons Diet Discharge Diet: No Restrictions Symptoms to Report to : Swelling Increased, Bleeding Excessive, Pain Increased, Fever Over 101 Degrees F, Vaginal Bleeding Increase, Cramps in Feet or Legs, Vaginal Discharge Foul For Any Problems or Questions: Contact Your Physician Skin/Wound Care Infection Signs and Symptoms: Increased Redness, Foul Odor of Wound, Increased Drainage, Skin Itchy or Has a Rash, Increased Swelling, Temperature Above 101 F Operative Area Clean and Dry: Keep Incision Clean/Dry Stitches/Lupe/Dermabond: Dermabond Bathing Instructions: MARGARITA Yo DO May 12, 2017 19:22
[2017-05-12 20:30] VITALS: BP 137/69
[2017-05-13] MEDS: IBUPROFEN 600 MG (MOTRIN) TAB PO SCH ×2 (00:33→07:59)
[2017-05-13] MEDS: DOCUSATE SODIUM 100 MG (COLACE) CAP PO SCH ×2 (00:33→07:58)
[2017-05-13 00:45] VITALS: BP 107/62
[2017-05-13] MEDS: HYDROcodone/APAP 5 MG/325 MG (LORTAB) TAB PO PRN ×2 (02:11→09:12)
[2017-05-13 04:50] VITALS: BP 126/67
[2017-05-13 07:55] VITALS: BP 122/66
[2017-05-13] MEDS: FERROUS SULF 325 MG (IRON) TAB PO SCH (07:58)
--- NOTE | 2017-05-13 10:00 | Progress Note-Standard ---
Standard Progress Note Progress Notes/Assess & Plan Date Seen by Provider: May 13, 2017 Time Seen by Provider: 07:45 Progress/Assessment & Plan Post-operative Day #2 s/p PLTCS due to FTP, meconium Subjective: Patient is without complaints. Ambulating, voiding after dominguez removed. Tolerating a regular diet without nausea or vomiting. Normal lochia. Pain is well controlled with oral pain medications. Passing flatus. breast feeding. Objective: Vital Sign - Last 24 Hours 05/12/17 05/12/17 05/12/17 05/12/17 11:00 16:30 20:30 22:26 Temp 98.0 98.2 96.4 Pulse 73 71 89 Resp B/P (MAP) 122/62 (82) 117/61 (79) 137/69 (91) Pulse Ox 100 100 98 98 O2 Delivery Room Air Room Air Room Air Room Air 05/13/17 05/13/17 05/13/17 00:45 04:50 07:55 Temp 97.1 98.7 99.0 Pulse 73 80 91 Resp 18 B/P (MAP) 107/62 (77) 126/67 (86) 122/66 (84) Pulse Ox 97 100 99 O2 Delivery Room Air Intake and Output 05/12/17 05/12/17 05/13/17 15:00 23:00 07:00 Intake Total 1800 ml 800 ml Output Total 2450 ml 2400 ml Balance -650 ml -1600 ml Physical Exam: General - Alert and oriented, no apparent distress Abdomen - Soft, appropriately tender to palpation, non-distended, fundus firm at umbilicus Incision - clean, dry and intact; no erythema or induration, no drainage Extremities - no edema, negative Walter's bilaterally Assessment: 1. post-operative day # 2, status postPLTCS. Recovering well, hemodynamically stable 2. Acute blood loss anemia, iron replaced Plan: Routine post-operative care. Encourage breast feeding. Encourage ambulation. VTE prophylaxis: SCDs. Ferrous sulfate supplementation. Plan for discharge today GERARD HENSLEY DO May 13, 2017 10:00 am
== END 2017-05-13 11:25 | disposition home or self-care (01) | DRG 765 ==
LOC: LDRP 05:55 → WS 05-11 17:45
PROVIDERS: ADMIT Obstetrics & Gynecology; ATTEND Obstetrics & Gynecology
PROC: 10D00Z1 Extraction of Products of Conception, Low, Open Approach (ICD-10-PCS; principal; 2017-05-11 15:38)
DX: O48.0 Post-term pregnancy (principal); O76 Abnormality in fetal heart rate and rhythm complicating labor and delivery; O62.2 Other uterine inertia; O64.0XX0 Obstructed labor due to incomplete rotation of fetal head, not applicable or unspecified; O90.81 Anemia of the puerperium; D62 Acute posthemorrhagic anemia; Z37.0 Single live birth; Z3A.40 40 weeks gestation of pregnancy
CPT/HCPCS: 36415; 81000; 83033; 85025; 86850; 86900; 86901; 87088; 94640; 94664; 94760